=== PATIENT | female | born 1980 | race Caucasian/White ===

== ENCOUNTER 2021-06-27 19:45 | Emergency (ER) | payer OTHER ==
[2021-06-27 20:00] VITALS: BP 117/79; PULSE 84; TEMP 98.7; BMI 24.3
[2021-06-27] MEDS ORDERED: RABIES IMMUNE GLOBULIN 300 UNITS/1 ML VIAL IM ONE ×2 (20:19→20:21)
[2021-06-27] MEDS ORDERED: RABIES VACCINE (PCEC)/PF 2.5 UNIT/VIAL IM ONE ×2 (20:19→20:30)
== END 2021-06-27 20:58 | disposition home or self-care (01) ==
LOC: JERFT 19:45
PROC: 3E023GC Introduction of Other Therapeutic Substance into Muscle, Percutaneous Approach (ICD-10-PCS; principal; 2021-06-27)
DX: Z20.3 Contact with and (suspected) exposure to rabies (principal)
CPT/HCPCS: 90375; 90675; 99283-25

== ENCOUNTER 2021-06-30 16:43 | Emergency (ER) | payer OTHER ==
[2021-06-30 16:58] VITALS: BP 104/46; PULSE 81; TEMP 98.4; BMI 24.1
[2021-06-30] MEDS ORDERED: RABIES VACCINE (PCEC)/PF 2.5 UNIT/VIAL IM ONE ×2 (17:20→17:29)
== END 2021-06-30 18:01 | disposition home or self-care (01) ==
LOC: JER 16:43
PROC: 3E023GC Introduction of Other Therapeutic Substance into Muscle, Percutaneous Approach (ICD-10-PCS; principal; 2021-06-30)
DX: Z20.3 Contact with and (suspected) exposure to rabies (principal)
CPT/HCPCS: 90675; 99283-25